=== PATIENT | male | born 1960 | race Caucasian/White ===

== ENCOUNTER 2017-01-31 03:25 | Emergency (ER) | payer BC ==
[2017-01-31 03:54] LABS: BASOPHILS % 0.2 (0.0-1.5); MEAN CORPUSCULAR HEMOGLOBIN 34.6 pg (28.0-34.0); MONOCYTES % 8.8 % (0.0-11.0); NEUTROPHILS # 3.8 # k/uL (1.4-7.7)
[2017-01-31] MEDS: LORazepam 2 MG/ML VIAL IVP ONE (03:55)
[2017-01-31 04:03] LABS: eGFR (African) > 60; eGFR (Non-African) > 60
[2017-01-31] MEDS: POTASSIUM CHLORIDE 20 MEQ TABLET.ER PO ONE (04:26)
[2017-01-31] MEDS: ALPRAZOLAM 0.5 MG TABLET PO ONE (04:50)
[2017-01-31] MEDS ORDERED: 0.9 % SODIUM CHLORIDE 500 ML IV ONE (04:55)
[2017-01-31] MEDS: 0.9 % SODIUM CHLORIDE 500 ML IV ONE (05:15)
--- NOTE | 2017-01-31 05:39 | Diagnostic Imaging Report ---
MARVIN TRUONG~ [facility] [address] [facility] [address] [place] [id number] ~ ~ ~ ~ Report Submission Date: Jan 31, 2017 5:23:37 AM CDT Patient ~ Study Name: RAMILA ROMANO ~ Date: Jan 31, 2017 5:05:04 AM CDT ~ Modality Type: CT\SR Gender: M ~ Description: CT BRAIN W/O CONTRAST : 56 ~ Institution: [facility] Physician: MARVIN TRUONG ~ ~ ~ ~ Computed tomography of the head without contrast History: Confusion Findings: Transverse brain sections are obtained without contrast revealing mild bifrontal and biparietal periventricular white matter hypodensity, minimal cerebral atrophy, and intracranial atherosclerotic calcification. Siddiqui white differentiation is intact. There is no intracranial hemorrhage, mass lesion, or fluid collection. The skull is intact. Impression: 1. 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 2. Mild cerebral atrophy. 3. No intracranial hemorrhage. ~ Electronically signed on Jan 31, 2017 5:23:37 AM CDT by: Ken SHIPMAN
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
[2017-01-31 06:34] VITALS: BP 149/85
== END 2017-01-31 06:15 | disposition short-term general hospital (02) ==
LOC: ED 03:25
DX: E87.6 Hypokalemia (principal); R41.0 Disorientation, unspecified; F11.23 Opioid dependence with withdrawal
CPT/HCPCS: 70450; 80053; 85025; 93005; A9270; J2060; J7060; 96361; 96375; 99284